=== PATIENT | male | born 1950 | race Caucasian/White ===

== ENCOUNTER 2019-05-19 07:31 | Day surgery (SDC) | payer MEDICARE, OTHER ==
[~2019-05-19] VITALS: Ht 182.9 cm; Wt 116.2 kg
[~2019-05-19 07:31] MED LIST: Aspir 8181 MG PO; HYDACE5 PO; LOSA50 PO; MED FOR BP; METO50ER PO; RXHYDACE PO; TOBR.3OPSO OD
== END 2019-05-19 09:44 | disposition home or self-care (01) ==
LOC: ORSCSDS 07:31
PROVIDERS: Surgery
PROC: 0DJD8ZZ Inspection of Lower Intestinal Tract, Via Natural or Artificial Opening Endoscopic (ICD-10-PCS; principal; 2019-05-19 08:45)
DX: Z12.11 Encounter for screening for malignant neoplasm of colon (principal); K57.30 Diverticulosis of large intestine without perforation or abscess without bleeding; I10 Essential (primary) hypertension; E78.5 Hyperlipidemia, unspecified; Z87.891 Personal history of nicotine dependence; Z79.82 Long term (current) use of aspirin; Z79.899 Other long term (current) drug therapy
CPT/HCPCS: J2704; J7120

== ENCOUNTER 2021-03-04 00:04 | Day surgery (SDC) | payer MEDICARE, OTHER ==
[2021-03-04] MEDS ORDERED: MYRBETRIQ25 MG PO (09:28)
[2021-03-04] MEDS ORDERED: HYDCHL12.5 PO (09:30)
--- NOTE | 2021-03-04 17:44 | NUR ---
PT MONITORED @ 15 MINUTUES DURING THE INFUSION AND FOR ONE HOUR AFTERWARDS. NO S/S OF RXN. PT DC'D, AMB WITH STEADY GAIT. NO COMPLAINTS.
== END 2021-03-04 17:44 | disposition home or self-care (01) ==
LOC: ATC 00:04
DX: U07.1 COVID-19 (principal); C61 Malignant neoplasm of prostate; Z87.891 Personal history of nicotine dependence
CPT/HCPCS: 96365; Q0243

== ENCOUNTER → 2022-04-23 | Outpatient (CLI) | payer MEDICARE, BC ==
[~2022-04-23] MED LIST changes: +HYDCHL12.5 PO; +MYRBETRIQ25 MG PO
== END | disposition home or self-care (01) ==
LOC: PLD 10:48 → LAB SHORT 10:48
DX: L57.0 Actinic keratosis (principal); L11.9 Acantholytic disorder, unspecified
CPT/HCPCS: 88305

== ENCOUNTER → 2022-05-09 | Outpatient (CLI) | payer MEDICARE, BC | END | disposition home or self-care (01) | LOC: PLD 12:07 → LAB SHORT 12:07 | DX: D03.4 Melanoma in situ of scalp and neck (principal) | CPT/HCPCS: 88305 ==

== ENCOUNTER → 2022-09-20 | Outpatient (CLI) | payer MEDICARE, BC | END | disposition home or self-care (01) | LOC: PLD 11:30 → LAB SHORT 11:30 | DX: D48.5 Neoplasm of uncertain behavior of skin (principal) | CPT/HCPCS: 88305 ==